=== PATIENT | male | born 1935 | race Caucasian/White ===

== ENCOUNTER → 2019-02-20 | Outpatient (CLI) | payer MEDICARE, OTHER | END | disposition home or self-care (01) | LOC: PCVCCLINIC 11:58 | PROVIDERS: ATTEND Internal Medicine | DX: R06.02 Shortness of breath (principal); E78.5 Hyperlipidemia, unspecified; G47.33 Obstructive sleep apnea (adult) (pediatric); K21.9 Gastro-esophageal reflux disease without esophagitis; Z86.79 Personal history of other diseases of the circulatory system | CPT/HCPCS: 36415; 80061; 93005; G0463 ==

== ENCOUNTER → 2019-03-27 | Outpatient (CLI) | payer MEDICARE, OTHER ==
[~2019-03-27] MED LIST: REGADENOSON 0.4 MG/5 ML DISP.SYRIN. IV ONE
--- NOTE | 2019-03-27 09:31 | PCVCIMAG ---
APPROVED REPORT Study performed: 03/27/2019 08:32:16 EXAM: Comprehensive 2D, Doppler, and color-flow Echocardiogram Patient Location: Echo lab Room #: 2Status: routine BSA: 2.16 HR: 50 bpmBP: 136/64 mmHg Rhythm: Bradycardia Other Information Study Quality: Good Risk Factors: Cardiac Risk Factors: Dyslipidemia Indications Dyspnea Fatigue Chest Pain HX: Rheumatic fever 2D Dimensions IVSd: 9.23 (7-11mm)LVOT Diam: 19.99 (18-24mm) LVDd: 47.60 mm PWd: 7.32 (7-11mm)Ascending Ao: 34.45 (22-36mm) LVDs: 26.12 (25-40mm) Left Atrium: 38.45 (27-40mm) Aortic Root: 23.62 mm LV Single Plane 4CH: 58.61 % LV Single Plane 2CH: 51.22 % Biplane EF: 56.9 % Volumes Left Atrial Volume (Systole) Single Plane 4CH: 84.87 mLSingle Plane 2CH: 53.61 mL Biplane LA Volume: 68.00 mLLA ESV Index: 31.00 mL/m2 Aortic Valve AoV Peak Donn.: 2.45 m/s AO Peak Gr.: 25.04 mmHgLVOT Max P.67 mmHg AO Mean Gr.: 13.07 mmHgLVOT Mean P.27 mmHg AO V2 Mean: 1.73 m/sLVOT Max V: 0.98 m/s AO V2 VTI: 64.27 cmLVOT Mean V: 0.72 m/s JAMES (VTI): 1.21 [id number] V1 VTI: 24.84 cm JAMES Vmax: 1.26 cm2 AI Vmax: 4.32 m/sSV (LVOT): 77.87 mL AI [place]: 2.60 m/s2 AI PHT: 483.61 ms Mitral Valve E/A Ratio: 1.8 MV Decel. Time: 196.30 ms MV E Max Donn.: 0.93 m/s MV A Donn.: 0.53 m/s IVRT: 72.66 ms TDI E/Lateral E': 10.33E/Medial E': 18.60 Medial E' Donn.: 0.05 m/s Lateral E' Donn.: 0.09 m/s Pulmonary Valve PV Peak Donn.: 0.97 m/sPV Peak Gr.: 3.77 mmHg Pulmonary Vein P Vein S: 0.73 m/sP Vein A: 0.37 m/s P Vein D: 0.87 m/sP Vein A Dur.: 131.5 msec P Vein S/D Ratio: 0.84 Tricuspid Valve TR Peak Donn.: 2.78 m/s TR Peak Gr.: 30.99 mmHg TV Vmax: 0.52 m/sPA Pressure: 38.00 mmHg Left Ventricle The left ventricle is normal size. There is normal LV segmental wall motion. There is normal left ventricular wall thickness. Left ventricular systolic function is normal. The left ventricular ejection fraction is within the normal range. LVEF is 55-60%. Moderate diastolic dysfunction is present (pseudonormal filling). Right Ventricle The right ventricle is normal size. The right ventricular systolic function is normal. Atria The left atrium size is normal. The right atrium size is normal. Aortic Valve Aortic valve leaflets are mild-moderately calcified, mild stenosis. Mild aortic regurgitation. Calculated aortic valve area is 1.2 cm2 with maximum pressure gradient of 24 mmHg and mean pressure gradient of 13 mmHg. Mitral Valve Mild mitral annular calcification. Mild mitral regurgitation. No evidence of mitral valve stenosis. Tricuspid Valve The tricuspid valve is normal in structure. Mild to moderate tricuspid regurgitation with a PA pressure of 38 mmHg. Mild pulmonary hypertension. Pulmonic Valve The pulmonary valve is normal in structure. Moderate pulmonic regurgitation. Great Vessels The aortic root is normal in size. The ascending aorta is normal in size. IVC is normal in size and collapses >50% with inspiration. Pericardium There is no pericardial effusion. There is no pleural effusion. <Conclusion> Left ventricular systolic function is normal. There is normal LV segmental wall motion. LVEF is 55-60%. Moderate diastolic dysfunction Aortic valve leaflets are mild-moderately calcified. Mild aortic regurgitation and mild stenosis Calculated aortic valve area is 1.2 cm2 with maximum pressure gradient of 24 mmHg and mean pressure gradient of 13 mmHg. Mild mitral annular calcification. Mild-moderate mitral regurgitation. Mild to moderate tricuspid regurgitation with a pulmonary artery pressure of 38 mmHg. There is no pericardial effusion.
--- NOTE | 2019-03-27 13:44 | PCVCIMAG ---
APPROVED REPORT Imaging Protocol: Rest Tc-99m/Stress Tc-99m 1 day Study performed: 03/27/2019 09:24:35 Indication: Chest pain, Dyspnea Patient Location: Out-Patient Stress Nurse: Dayan Monk RN NH Tech:Sonali SerranoCARYNMT Ht: 5 ft 11 in Wt: 212 lbs BSA: 2.16 m2 HR: 48 bpm BP: 161/71 mmHg BMI: 29.5 Rhythm: Sinus Bradycardia Medical History Medical History: Hyperlipidemia, Former Smoker Medications: ASA, Atorvastatin Allergies: No known drug allergies Cardiac Risk Factors: Age Pretest Chest Pain Characteristics: No chest pain Exercise History: Indeterminate Resting Data Rest SPECT myocardial perfusion imaging was performed in supine position 45 minutes following the intravenous injection of 10.8 mCi of Tc-99m Sestamibi. Time of rest injection: 914 Date: 03/27/2019 Administration Route: IV Administration Site: Right Wrist Pharmacologic Stress Pharmacologic stress test was performed by injecting Regadenoson 0.4 mg IV push over 10-15 seconds immediately followed by the intravenous injection of 33.2 mCi of Tc-99m Sestamibi. Time of stress injection: 1044 Date: 03/27/2019 Administration Route: IV Administration Site: Right Wrist Gated Stress SPECT was performed 45 minutes after stress injection. The images were gated to evaluate regional wall motion and calculate left ventricular ejection fraction. Stress Test Details Stress Test: Pharmacologic stress testing performed using 0.4 mg of regadenoson per 5 mL given IV over 10 seconds. Reason for pharmacologic stress test: physical limitation, knee issues. HRMax Heart Rate (APMHR): 136 bpm Resting HR: 48 bpmTarget HR (85% APMHR): 115 bpm Max HR Achieved: 75 bpm % of APMHR: 55 Recovery HR: 67 bpm BP Resting BP: 161/71 mmHg Max BP: 178/77 mmHg Recovery BP: 139/70 mmHg ECG Resting ECG: Sinus Bradycardia Stress ECG: Sinus Rhythm ST Change: None Maximum ST Deviation: 0 mm Arrhythmia: None Recovery ECG: Sinus Rhythm Recovery ST Change: None Recovery ST Deviation: 0 mm Clinical Reason for Termination: Completed protocol Stress Symptoms: Dyspnea Exercise duration: 0 min 55 sec Symptoms resolved with caffeine. Stress ECG Conclusion Clinical: Non-ischemic ECG: Non-ischemic Study Quality Study: Good Study Data Post stress, the left ventricular ejection was 74%.. SSS: 3 SRS: 3 SDS: 0 TID = 0.92. Perfusion No evidence of stress induced ischemia or prior myocardial infarction. Wall Motion Normal left ventricular size and function with no regional wall motion abnormalities. Nuclear Conclusion No evidence of stress induced ischemia or prior myocardial infarction. Normal left ventricular size and function with no regional wall motion abnormalities. Post stress, the left ventricular ejection was 74%. No prior study available for comparison. Interpreted by: Douglas Olivera MD Electronically Approved: 03/27/2019 13:37:37 <Conclusion> Clinical: Non-ischemic ECG: Non-ischemic
== END | disposition home or self-care (01) ==
LOC: PCVCIMAG 08:17
PROVIDERS: ATTEND Internal Medicine
DX: I08.3 Combined rheumatic disorders of mitral, aortic and tricuspid valves (principal); R07.9 Chest pain, unspecified; R06.00 Dyspnea, unspecified; E78.5 Hyperlipidemia, unspecified; Z87.891 Personal history of nicotine dependence
CPT/HCPCS: 78452; 93017; 93306; A9500; J2785